=== PATIENT | female | born 1970 | race Caucasian/White ===

== ENCOUNTER 2020-02-13 11:32 | Outpatient (CLI) | payer SELFPAY ==
--- NOTE | 2020-02-13 11:30 | CT_ITS ---
WS: [id number] CT ABDOMEN PELVIS TECHNIQUE: Contrast-enhanced CT of the abdomen and pelvis with coronal and sagittal reformatted image s. CLINICAL INFORMATION: NAUSEA/VOMITING, LUQ PAIN, LLQ PAIN, HEMATURIA COMPARISON: None. DLP: All CT scans at [facility] use at least one of these dose optimization techniques: automat ed exposure control; mA and/or kV adjustment per patient size (includes targeted exams where dose is matched to clinical indication); or iterative reconstruction. FINDINGS: Mild diffuse fatty infiltration liver. Prior cholecystectomy and hysterectomy. Normal spleen. Normal GE junction. Lung bases are well aerated. Normal visualized pancreas. Adrenal glands are normal. Norm al renal parenchymal enhancement. No hydronephrosis. Normal caliber abdominal aorta. No abdominal lym phadenopathy. Mild thickening with slight induration involving the left descending colon and sigmoid colon suspicio us for mild or early diverticulitis. No evidence of drainable abscess or fluid collection. Small bila teral ovarian cysts. No free fluid in the pelvis. No inguinal lymphadenopathy. Normal lumbar spine. CT/CT abdomen pelvis w con* [id number] IMPRESSION: 1. Mild thickening and induration about the left descending colon and sigmoid colon suspicious for mild or early diverticulitis. No drainable abscess or flui d collection. 2. Mild diffuse fatty infiltration liver. 3. Prior cholecystectomy and hysterectomy. 4. Normal caliber abdominal aorta. 5. No free fluid in the pelvis.
[2020-02-13] MEDS: iohexol 300 mg/mL 50 mL Btl PO (13:30)
[2020-02-13] MEDS: iohexol 300 mg/mL 100 mL Btl IV (13:32)
== END 2020-02-13 11:33 | disposition home or self-care (01) ==
LOC: RADWPI 11:35
PROVIDERS: Family Provider Nurse Practitioner Family; PCP Nurse Practitioner Family; Visit Provider Nurse Practitioner Family
DX: R10.32 Left lower quadrant pain (principal); R11.2 Nausea with vomiting, unspecified; R10.12 Left upper quadrant pain; R31.9 Hematuria, unspecified; K76.0 Fatty (change of) liver, not elsewhere classified
CPT/HCPCS: 74177; Q9967

== ENCOUNTER 2021-05-06 10:19 | Emergency (ER) | payer OTHER, SELFPAY ==
[2021-05-06 10:29] VITALS: BP 186/106; PULSE 96; RESP 12; TEMP 36.7; O2SAT 99; BMI 34.9
--- NOTE | 2021-05-06 10:41 | XR_ITS ---
WS: [id number] Portable AP upright chest, 05/06/2021 Clinical Data: dyspnea Comparison: PA and lateral chest, 12/13/2008. Findings: No nodules, masses or effusions are seen. The heart is normal. The pulmonary vascularity is not increased. No pneumonia or pneumothorax is seen. Monitor leads are on the chest wall. XR/XR chest 1V portable [id number] Impression: Negative chest.
--- NOTE | 2021-05-06 10:48 | PC.PHAR ---
pt states she takes care of her own medications-pt states she doesnt take any otc medications
--- NOTE | 2021-05-06 10:59 | ECG_ITS ---
[facility] Test Date: 2021-05-06 Pat Name: Allegra Tate Department: Room: Gender: Female Cytogeneticist: : 1970 Requested By: Sameer Oswald Order Number: [id number] Maite MD: Angela Cruz M.D. Measurements Intervals [place] Rate: 89 P: -18 [place]: 197 QRS: -2 QRSD: 75 T: 37 QT: 355 QTc: 433 Interpretive Statements SINUS RHYTHM No previous ECG available for comparison Electronically Signed On 05-07-2021 9:09:03 CDT by Angela Cruz M.D. [id number]
--- NOTE | 2021-05-06 11:01 | ED_ITS ---
HPI - General Adult General: Chief complaint: Anxiety Stated complaint: SOB, Anxiety Time Seen by Provider: 05/06/21 10:24 History of Present Illness: HPI narrative: CC: Shortness of breath HPI: This is a [51] yo patient hx of anxiety, HTN, HDL presenting to the ED complaining of acute sudden onset of paroxsymal of shortness of breath x15 minutes, generalized numbness and nervousnesses. Patient reports symptoms feel like her anxiety episodes and she felt immediate relief from taking a table of xanax prior to arrival in the ED. No associated chest pain and palpitations. Denies any recent sympathomimetic drug use, hx or family hx of thyroid issues, dysphagia, diaphoresis, radiation of pain to bilateral arms, jaw. Denies F/N/V/D. Patient denies any recent immobility, surgery, unilateral leg swelling, or prior PE. Patient denies any orthopnea. Onset: 30 minutes ago Duration: 30 minutes Location: home Severity: mild/moderate Review of Systems Narrative: Constitutional: No fever, no chills. HEENT: No vision changes, no sore throat. CV: No chest pain, no palpitations. PULM: No cough, +dyspnea. GI: No abdominal pain, no N/V/D. : No dysuria, no frequency, no hematuria. MSKEL: No arthralgias, no edema. SKIN: No new rashes, no lesions. NEURO: No headache, no focal weakness. HEME: No easy bleeding or bruising. PSYCH: No change in mood or affect. [facility] ED PFSH: Social History Smoking and tobacco status: never smoked Physical Exam Narrative: EXAM NARRATIVE: Head: Atraumatic Eyes: PERRL, EOMI, conjunctiva without injection ENT: Throat without erythema, lesions or exudate, MMM NECK: Supple, trachea midline, no JVD LUNGS: LCTA CV: RRR, S1,S2, no murmurs, rubs, gallops. 2+ peripheral pulses in UEs ABDOMEN: Soft, nontender, nondistended, BS x4, no rigidity, no guarding, no rebound EXTREMITY: Normal ROM, no pitting edema, no calf tenderness to palpation SKIN: No rash or erythema NEURO: Awake and alert. No focal motor deficits. PSYCH: Normal mood and affect. Course Vital Signs: Vital signs: Vital Signs Temperature 98.0 F 05/06/21 10:29 Pulse Rate 89 05/06/21 14:00 Respiratory Rate 14 05/06/21 14:00 Blood Pressure 112/66 05/06/21 12:25 Pulse Oximetry 97 05/06/21 12:25 MDM - General Adult MDM Narrative: Medical decision making narrative: [51]yo patient w/ hx of anxiety, HTN, HLD presenting to the ED with evaluation of episodes of shortness of breath lasting for 30 minutes that improved with xanx. . On exam, HDS, pulse 2+ radially bilaterally, no signs of fluid overload, AAOx3, neuro exam intact. Presentation in a young patient likely anxiety attack vs atypical chest pain. Given History and Exam today I have no suspicion for ACS, Pneumothorax, Pneumonia, Pulmonary Embolus, Tamponade, Aortic Dissection or other emergent problems as a cause for this presentation. Workup: ECG, CXR, Telemetry Interventions: Patient declined intervention EKG showing regular sinus rhythm at HT of [89]. Normal axis. No ST elevations/depressions to suggest coronary occlusion. Normal NC, QRS, QT intervals. Other Labs unremarkable for emergent problems including troponin x 2 negative. CXR: Without PTX, PNA, or widened mediastinum Last Stress Test: never Last Heart Catheterization: never PERC: Negative [11:06] On reassessment, the patient is HDS, no complaints of persistent symptoms in the ED after evaluation. ECG is non-ischemic. Workup today is unr emarkable. Doubt ACS/PE or other emergent causes of chest pain. Patient declined medicine at this time. Disposition: Discharge. Strict return precautions discussed with the patient with full understanding. Advised patient to follow up promptly with a primary care provider in 24-48 hrs if the patient has persistent symptoms. Given return instructions for any crushing/tearing chest pain, focal weakness, syncope or any new or concerning issues. Instructed to follow up with PCP for further evaluation and multi-modal management of anxiety. Patient agrees with plan today. Lab Data: Labs: Lab Results 05/06/21 05/06/21 05/06/21 Range/Units 10:59 10:59 10:59 WBC 8.3 (4.0-10.0) 10^3/ uL RBC 4.34 (4.1-5.3) 10^6/u L Hgb 14.4 (11.5-15.3) g/dL Hct 41.8 (37.0-47.0) % MCV 96.3 (81-99) fl MCH 33.2 (28.0-34.0) pg MCHC 34.4 (30.0-36.0) g/dL RDW 11.9 L (12.1-15.1) % Plt Count 384 (130-400) 10^3/c mm MPV 9.8 (7.4-10.4) fL Neut % (Auto) 64.8 % Lymph % (Auto) 23.5 % [place] % (Auto) 8.2 % Eos % (Auto) 2.4 % Baso % (Auto) 0.7 % Neut # (Auto) 5.34 (1.8-7.7) 10^3/u L Lymph # (Auto) 1.9 (0.8-4.8) 10^3/u L Br[place] # (Auto) 0.7 (0.2-0.9) 10^3/u L Eos # (Auto) 0.2 (0.0-0.8) 10^3/u L Baso # (Auto) 0.1 (0.0-0.1) 10^3/u L Nucleated RBC % (a uto) 0 % Nucleated RBCs # 0.0 /100WBC Sodium 133 L (136-145) mmol/L Potassium 3.6 (3.5-5.1) mmol/L Chloride 97 L (98-107) mmol/L Carbon Dioxide 23 (22-29) mmol/L Anion Gap 16.6 (5-19) BUN 13 (6-20) mg/dL Creatinine 0.7 (0.5-0.9) mg/dL GFR Calculation 88.2 L (90-130) mL/min Glucose 92 (65-115) mg/dL Calculated Osmolal ity 276 L (285-295) mOsm/k g Calcium 9.2 (8.5-10.5) mg/dL Troponin T Gen 5 n g/L 6 (0-10) ng/L Troponin T 120 Min [place] (0-10) ng/L Delta Troponin T 05/06/21 Range/Units 13:00 WBC (4.0-10.0) 10^3/ uL RBC (4.1-5.3) 10^6/u L Hgb (11.5-15.3) g/dL Hct (37.0-47.0) % MCV (81-99) fl MCH (28.0-34.0) pg MCHC (30.0-36.0) g/dL RDW (12.1-15.1) % Plt Count (130-400) 10^3/c mm MPV (7.4-10.4) fL Neut % (Auto) % Lymph % (Auto) % [place] % (Auto) % Eos % (Auto) % Baso % (Auto) % Neut # (Auto) (1.8-7.7) 10^3/u L Lymph # (Auto) (0.8-4.8) 10^3/u L [place] # (Auto) (0.2-0.9) 10^3/u L Eos # (Auto) (0.0-0.8) 10^3/u L Baso # (Auto) (0.0-0.1) 10^3/u L Nucleated RBC % (a uto) % Nucleated RBCs # /100WBC Sodium (136-145) mmol/L Potassium (3.5-5.1) mmol/L Chloride (98-107) mmol/L Carbon Dioxide (22-29) mmol/L Anion Gap (5-19) BUN (6-20) mg/dL Creatinine (0.5-0.9) mg/dL GFR Calculation (90-130) mL/min Glucose (65-115) mg/dL Calculated Osmolal ity (285-295) mOsm/k g Calcium (8.5-10.5) mg/dL Troponin T Gen 5 n g/L (0-10) ng/L Troponin T 120 Min [place] 6.00 (0-10) ng/L Delta Troponin T TNP Imaging Data^: Other Imaging: Radiologist's impression: [address] [id number] ReportSigned Patient: Allegra Tate Katelynnt #: [id number]: 1970Acct#:[id number]/Sex: 51 / FADM Date: 05/06/21Loc: ERRoom/Bed:Attending Dr: Ordering Provider/Ordering MD: Sameer Oswald MD Date of Service: 05/06/21 Procedure(s): XR chest 1V portable [id number] Accession Number(s): [id number] Report Number: [id number] WS: [id number] Portable AP upright chest, 05/06/2021 Clinical Data: dyspnea Comparison: PA and lateral chest, 12/13/2008. Findings: No nodules, masses or effusions are seen. The heart is normal. The pulmonary vascularity is not increased. No pneumonia or pneumothorax is seen. Monitor leads are on the chest wall. XR/XR chest 1V portable [id number] Impression: Negative chest. Dictated By:Merna Richardson MDSigned By:Merna Richardson MDSigned Date/Time:05/06/217DD/ 1135 Discharge Plan Discharge Patient Disposition: Home Clinical Impression: Shortness of breath Condition: Stable Prescriptions: No Action (DME) thumb spica splint See Rx Instructions .Route .MEDSUPPLY Qty: 1 RF: 0 lisinopril-hydrochlorothiazide 20-25 mg tablet 1 tab PO QAM RF: 0 fenofibrate 160 mg Tablet 160 mg PO QAM RF: 0 Discharge Orders: Discharge ED (Routine); Ordered 05/06/21 Ordered By: Sameer Oswald Referrals: Maggy Higginbotham, [employer]ACHINE OPERATOR [Primary Care Provider] - Discharge Diet: Advance as tolerated Discharge Activity: Resume usual activity Patient Instructions: Dyspnea (ED) Activity Restrictions/Additional Instructions: Please come back to the emergency room if your symptoms worsen. We will connect you with a glove cleaner if you wanted. Our protective services case worker will call you in the next few days for referral to a glove cleaner should he needed an you are still concerned by your heart. Coding Level of Care Code ED Retail Department Supervisor for Fauzia Easley
[2021-05-06 11:08] LABS: Basophils # 0.1 10^3/uL (0.0-0.1); Basophils % 0.7 %; Eosinophils # 0.2 10^3/uL (0.0-0.8); Eosinophils % 2.4 %; Hematocrit 41.8 % (37.0-47.0); Hemoglobin 14.4 g/dL (11.5-15.3); Lymphocytes # 1.9 10^3/uL (0.8-4.8); Lymphocytes % 23.5 %; Mean Corpuscular HGB Conc 34.4 g/dL (30.0-36.0); Mean Corpuscular Hemoglobin 33.2 pg (28.0-34.0); Mean Corpuscular Volume 96.3 fl (81-99); Mean Platelet Volume 9.8 fL (7.4-10.4); Monocytes # 0.7 10^3/uL (0.2-0.9); Monocytes % 8.2 %; Neutrophils # 5.34 10^3/uL (1.8-7.7); Neutrophils % 64.8 %; Nucleated Red Blood Cells % 0 %; Platelet Count 384 10^3/cmm (130-400); Red Blood Count 4.34 10^6/uL (4.1-5.3); Red Cell Distribution Width 11.9 % (12.1-15.1); White Blood Count 8.3 10^3/uL (4.0-10.0)
[2021-05-06 11:31] LABS: Troponin T (5th) Once 6 ng/L (0-10)
[2021-05-06 11:33] LABS: Anion Gap 16.6 (5-19); Blood Urea Nitrogen 13 mg/dL (6-20); Calcium 9.2 mg/dL (8.5-10.5); Carbon Dioxide 23 mmol/L (22-29); Chloride 97 mmol/L (98-107); Glomerular Filtration Rate 88.2 mL/min (90-130); Glucose 92 mg/dL (65-115); Osmolality Calculated 276 mOsm/kg (285-295); Potassium 3.6 mmol/L (3.5-5.1); Sodium 133 mmol/L (136-145)
[2021-05-06 11:54] VITALS: BP 115/71; PULSE 81; RESP 18; O2SAT 97
[2021-05-06 12:25] VITALS: BP 112/66; PULSE 79; RESP 18; O2SAT 97
[2021-05-06 12:29] VITALS: PULSE 89
[2021-05-06] MEDS: ALPRAZolam 0.5 mg Tablet 0.25 MG PO (13:59)
[2021-05-06 14:00] VITALS: PULSE 89; RESP 14
--- NOTE | 2021-05-12 15:01 | DCPLANNER ---
patient manager had message to schedule a follow up appointment for patient with [facility]. patient manager called [facility], spoke with Angelique, gave clinic patients appointment information. A follow up appointment was scheduled for , May 20, 2021 at 1:[address] Trinidad. patient manager called patient and gave her the appointment information.
--- NOTE | 2021-05-28 08:55 | DCPLANNER ---
Patient had a follow up appointment scheduled for 05.20.21 with [facility] - patient did attend appointment.
== END 2021-05-06 14:00 | disposition home or self-care (01) ==
PROVIDERS: Emergency Provider Emergency Medicine; PCP Nurse Practitioner Family
DX: R06.02 Shortness of breath (principal)
CPT/HCPCS: 71045; 80048; 84484; 85025; 93005; 99284

== ENCOUNTER 2023-03-15 10:41 | Emergency (ER) | payer SELFPAY ==
[2023-03-15 10:56] VITALS: BMI 36.6
[2023-03-15 10:59] VITALS: BP 112/71; PULSE 95; RESP 18; TEMP 36.9; O2SAT 97
--- NOTE | 2023-03-15 11:29 | ED_ITS ---
HPI - Extremity Problem General: Chief complaint: Extremity Problem,Nontraumatic Stated complaint: right shoulder pain Time Seen by Provider: 03/15/23 10:42 Source: patient Mode of arrival: ambulatory Limitations: no limitations History of Present Illness: Patient is a 52-year-old female presents to ED today with what she believes to be an overuse injury of the right shoulder. 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 She states over the past several days she has noticed progressively worsening right shoulder pain. Patient has no neck pain. She is not experiencing any numbness, tingling, loss of sensation to the extremity. She has not noticed any color or temperature changes. Pain is located to the anterior right shoulder and worsens with range of motion. She has had no direct injury or trauma. MD Complaint: joint pain Onset (ago): day(s) Pain Consistency: constant Location: right and upper extremity Quality: aching and constant Radiation: none Relieving factors: nothing Exacerbating factors: range of motion Associated symptoms: Reports no associated symptoms; Deny chest pain, fever(s) or rash Review of Systems Const: Denies: fever(s), chills, body aches, fatigue or malaise Card: Denies: chest pain Musc: Reports: joint pain and limited range of motion (R shoulder); Denies: neck pain, back pain, extremity pain, extremity swelling, joint swelling, joint redness or joint warmth Skin/Breast: Denies: rash Neuro: Denies: headache(s), numbness in extremities, weakness in extremities or sensory changes PFS ED PFSH: Social History Smoking and tobacco status: never smoked Physical Exam Const: COMMON NORMALS: no acute distress, patient oriented x3, no limitations, healthy appearing, alert and well nourished GENERAL APPEARANCE: cooperative Neck/C-Spine: COMMON NORMALS: full ROM CERVICAL SPINE: No Cervical spine tenderness, No step off deformity, No Paracervical muscle tenderness, No Paracervical spasm and No Trapezius muscle tenderness Extremity: COMMON NORMALS: normal to inspection, capillary refill normal, no joint enlargement, no clubbing, cyanosis or edema and no pedal edema RIGHT UPPER EXTREMITY: Yes shoulder joint (TTP anterior glenohumeral joint line) Right shoulder: Yes Right shoulder joint ROM exam (limited due to pain) and Yes Right shoulder joint neurovascular exam (normal) Neuro: COMMON NORMALS: patient oriented x3, moves all extremities, no focal motor deficits and no sensory deficits noted SENSORIUM/ORIENTATION: Yes alert Skin: COMMON NORMALS: no rashes or lesions noted GENERAL SKIN EXAM: no rashes or lesions noted Course Vital Signs: Vital signs: Vital Signs Temperature 98.5 F 03/15/23 10:59 Pulse Rate 95 03/15/23 10:59 Respiratory Rate 18 03/15/23 10:59 Blood Pressure 112/71 03/15/23 10:59 Pulse Oximetry 97 03/15/23 10:59 Oxygen Delivery Me thod Room Air 03/15/23 10:59 MDM - Extremity (Nontraumatic) Medical Decision Making Patient will be treated with anti-inflammatories and muscle relaxers. Offered steroids but she states she has a history of bipolar and steroids in the past have made her experience insomnia/manic-like symptoms so she wants to hold off on these. I think this is reasonable. XR at this time would be fairly low yield and unlikely to change overall management. I will have case management reach out to her to set her up with a follow-up primary care appointment in case symptoms do not improve with conservative therapies at home. We also discussed rest as well as ice/heat. Return to ED precautions given. Discharge Plan Discharge Patient Disposition: Home Clinical Impression: Acute pain of right shoulder Condition: Stable Prescriptions: New methocarbamol 500 mg tablet 1,000 mg PO Q8H Qty: 30 0RF diclofenac sodium 50 mg tablet,delayed release (DR/EC) 50 mg PO Q12H PRN (Reason: pain) Qty: 20 0RF No Action (DME) thumb spica splint See Rx Instructions .Route .MEDSUPPLY Qty: 1 0RF Rx Instructions: As directed levofloxacin 750 mg tablet 750 mg PO DAILY 7 Days Qty: 7 0RF albuterol sulfate 90 mcg/actuation HFA aerosol inhaler 2 inh inhalation Q4H PRN (Reason: shortness of breath or wheezing) Qty: 6.7 0RF fluticasone propionate [Flonase Allergy Relief] 50 mcg/actuation spray,suspension 2 spray intranasal DAILY Qty: 16 0RF Rx Instructions: administer into each nostril lisinopril-hydrochlorothiazide 20-25 mg tablet 1 tab PO DAILY Qty: 30 0RF lisinopril-hydrochlorothiazide 20-25 mg tablet 1 tab PO QAM fenofibrate 160 mg Tablet 160 mg PO QAM Discharge Orders: Discharge ED (Routine); Ordered 03/15/23 Ordered By: Felecia Mills Activity Restrictions/Additional Instructions: As we discussed case management should reach out to you to help you set up with a primary care provider for follow-up in case symptoms do not improve with conservative therapies. Coding Level of Care Code ED Product Evangelist for Fauzia Easley
[2023-03-15] MEDS: ketorolac 60 mg/2 mL INJ IM (11:46)
--- NOTE | 2023-03-16 10:34 | DCPLANNER ---
manager process called patient due to no primary care physician - no answer at this time.
== END 2023-03-15 11:52 | disposition home or self-care (01) ==
PROVIDERS: Emergency Provider Physician Assistant
DX: M25.511 Pain in right shoulder (principal)
CPT/HCPCS: 96372; 99284; J1885

== ENCOUNTER 2024-08-08 07:41 | Outpatient (CLI) | payer OTHER, SELFPAY ==
--- NOTE | 2024-08-08 07:58 | MM_ITS ---
WS: [id number] BILATERAL SCREENING DIGITAL TOMOSYNTHESIS MAMMOGRAM WITH CAD HISTORY: SCREENING COMPARISON: None available. Bilateral CC and MLO views with tomosynthesis and synthetic mammography submitted. Computer aided det ection analyzed. Breast composition: The breasts are almost entirely fatty. No suspicious masses, microcalcifications or architectural distortion. There are a few scattered benign calcifications in each breast. MM/MM scr BI tomosynthesis [id number] IMPRESSION: BI-RADS: 2 - Benign. FOLLOW UP: 1 Year Follow-up
== END 2024-08-08 07:42 | disposition home or self-care (01) ==
PROVIDERS: PCP Nurse Practitioner Family; Visit Provider Nurse Practitioner Family
DX: Z12.31 Encounter for screening mammogram for malignant neoplasm of breast (principal); R92.313 Mammographic fatty tissue density, bilateral breasts; R92.1 Mammographic calcification found on diagnostic imaging of breast
CPT/HCPCS: 77063; 77067